=== PATIENT | female | born 1960 | race Hispanic/Latino ===

== ENCOUNTER 2017-04-14 09:12 | Outpatient (CLI) | payer BC ==
--- NOTE | 2017-04-14 10:04 | XRay Report ---
XRAY BILATERAL HIPS AND AP PELVIS THREE VIEWS: 04/14/17 CLINICAL: Bilateral hip pain, right worse than left FINDINGS: Right: No fracture or dislocation. Superior acetabular eburnation and mild superior and inferior joint space narrowing. Minimal osteophytes. Normal soft tissues. Left: No fracture or dislocation. Superior acetabular eburnation and mild superior joint space narrowing. Minimal osteophytes.Normal soft tissues. The pelvic bones are intact.Mild bilateral SI joint sclerosis but no erosions. IMPRESSION: Mild bilateral osteoarthritis of the hips, right slightly worse than left.Mild bilateral sacroiliitis.
== END 2017-04-14 09:13 | disposition home or self-care (01) ==
LOC: SPVIMAG 09:12
PROVIDERS: ATTEND Orthopaedic Surgery Sports Medicine
DX: M16.0 Bilateral primary osteoarthritis of hip (principal); M46.1 Sacroiliitis, not elsewhere classified; M25.761 Osteophyte, right knee; M25.762 Osteophyte, left knee
CPT/HCPCS: 73521